=== PATIENT | male | born 2000 | race Caucasian/White ===

== ENCOUNTER 2024-06-08 00:54 | Emergency (ER) | payer MEDICAID ==
[~2024-06-08] VITALS: Ht 172.7 cm; Wt 86.0 kg
[2024-06-08 01:18] VITALS: O2SAT 95
[2024-06-08 01:20] VITALS: BP 115/66; PULSE 109; RESP 18; TEMP 36.6; O2SAT 98
== END 2024-06-08 03:01 | disposition left against medical advice (07) ==
LOC: ER 00:54
DX: S05.8X9A Other injuries of unspecified eye and orbit, initial encounter (principal); Z53.21 Procedure and treatment not carried out due to patient leaving prior to being seen by health care provider; X58.XXXA Exposure to other specified factors, initial encounter; Y93.89 Activity, other specified; Y92.89 Other specified places as the place of occurrence of the external cause; Y99.8 Other external cause status